=== PATIENT | male | born 1955 | race Caucasian/White ===

== ENCOUNTER 2018-06-09 07:03 | Day surgery (SDC) | payer MEDICARE, MEDICAID ==
[2018-06-09] MEDS ORDERED: MIDAZOLAM HCL 2MG/2ML VIAL IV ONE (07:04)
[2018-06-09] MEDS ORDERED: OXYCODONE/APAP 10MG-325MG TABLET PO ONE (07:04)
[2018-06-09] MEDS ORDERED: FENTANYL PF 100MCG/2ML VIAL IV ONE (07:04)
[2018-06-09] MEDS ORDERED: LIDOCAINE 2% MDV (20MG/ML) 20ML VIAL IV ONE (07:04)
[2018-06-09] MEDS ORDERED: PROPOFOL 10 MG/ML VIAL IV ONE (07:04)
--- NOTE | 2018-06-09 17:29 | Operative Note ---
DATE OF SURGERY: 06/09/08 PREOPERATIVE DIAGNOSIS: LUMBAR RADICULOPATHY, ICD-10 CODE = M54.16 AND M54.17. SURGERY: FLUOROSCOPIC-GUIDED BILATERAL LUMBAR EPIDURAL INJECTION L4-5. SURGEON: GOOD JOHNSON D.O. PRIMARY CARE PHYSICIAN: DR. MCDONOUGH. ANESTHESIA: LOCAL SEDATION. ANESTHESIA PROVIDER: ELLIS SMITH CRNA. INDICATIONS: This patient presents with pain, which is low back, hip, and leg. The leg component across an outer front surface. The pattern is L4. SURGERY: Intravenous line, vital sign monitoring, IV sedation, prepped and draped, sterile technique. Under imaging, the epidural interspace at L4-5 identified and marked bilaterally. Skin infiltrated. Two separate #18 gauge Tuohy needles, one left and one right of the midline. 5 mL of 0.125% Marcaine with Dexamethasone injected. Needle removed. Back cleaned. Topical antibiotic. Sterile dressing was applied. We will monitor and evaluate. cc: Dr. Mcdonough JOB NUMBER: [id number] MTDD
== END 2018-06-09 09:05 | disposition home or self-care (01) ==
LOC: SUR 07:03
PROVIDERS: ATTEND Pain Medicine Interventional Pain Medicine
DX: M54.16 Radiculopathy, lumbar region (principal); M54.17 Radiculopathy, lumbosacral region; E78.00 Pure hypercholesterolemia, unspecified; J44.9 Chronic obstructive pulmonary disease, unspecified; K21.9 Gastro-esophageal reflux disease without esophagitis
CPT/HCPCS: 62323; 01992; Q9967; J3010